=== PATIENT | male | born 1970 ===

== ENCOUNTER 2018-01-12 12:53 | Emergency (ER) | payer SELFPAY ==
--- NOTE | 2018-01-12 13:26 | RAD ---
THREE VIEWS THORACIC SPINE: History: Trauma. Patient fell on his back and right side with back pain. FINDINGS: AP, lateral, and swimmers view thoracic spine obtained. Images demonstrate no evidence of thoracic spine fractures, subluxations, or bony lesions. IMPRESSION: Normal three views thoracic spine. POS: [facility]
--- NOTE | 2018-01-12 13:40 | CT ---
CT CERVICAL SPINE NONCONTRAST: HISTORY: 47-year-old male status post acute cervical trauma due to fall, with decreased range of motion. FINDINGS: There are no jumped or perched facets. There is no evidence of acute fracture. The vertebral body h eights are maintained. There is no prevertebral soft tissue swelling. IMPRESSION: No evidence of acute fracture or acute traumatic subluxation. vin POS: [facility]
[2018-01-12] MEDS ORDERED: Bacitracin Zinc 1 Packet ONE (13:43)
== END 2018-01-12 14:32 | disposition home or self-care (01) ==
LOC: ERS 12:53
DX: S20.221A Contusion of right back wall of thorax, initial encounter (principal); W20.8XXA Other cause of strike by thrown, projected or falling object, initial encounter; Y92.69 Other specified industrial and construction area as the place of occurrence of the external cause
CPT/HCPCS: 72072; 72125